=== PATIENT | female | born 1955 | race Caucasian/White ===

== ENCOUNTER 2022-04-12 09:43 | Emergency (ER) | payer MEDICARE, MEDICAID ==
[2022-04-12] MEDS ORDERED: Ketorolac Tromethamine 30 MG/ML VIAL ONE (10:59)
== END 2022-04-12 12:45 | disposition home or self-care (01) ==
LOC: ERS 09:43
DX: M25.532 Pain in left wrist (principal)
CPT/HCPCS: 96372; J1885

== ENCOUNTER 2022-05-20 13:28 | Emergency (ER) | payer MEDICARE, MEDICAID | END 2022-05-20 16:25 | disposition home or self-care (01) | LOC: ERS 13:28 | DX: J06.9 Acute upper respiratory infection, unspecified (principal) | CPT/HCPCS: 71045 ==